=== PATIENT | male | born 1970 | race Caucasian/White ===

== ENCOUNTER 2017-10-30 19:11 | Emergency (ER) | payer OTHER ==
[~2017-10-30] VITALS: Ht 154.9 cm; Wt 48.5 kg
--- NOTE | 2017-10-30 19:48 | CT SCAN REPORT ---
EXAMINATION: CT HEAD WITHOUT CONTRAST CLINICAL INFORMATION: 47-year-old man with facial droop. COMPARISON: None TECHNIQUE: Contiguous axial imaging was performed from the skull base to vertex without intravenous administration of contrast. DLP: 594 mGy-cm FINDINGS: There is no evidence of acute intracranial hemorrhage or territorial infarction. No abnormal mass effect or midline shift is seen. Kothari to white matter differentiation is well preserved. No extra-axial fluid collections are identified. The ventricles are normal in size. There is no abnormal attenuation within the brain parenchyma. The osseous structures and soft tissues are normal. The mastoid air cells and visualized portions of the paranasal sinuses are well aerated. IMPRESSION: No acute intracranial pathology.
[2017-10-30 19:50] LABS: ABSOLUTE BASOPHIL COUNT 0 /CUMM (0.0-0.2); ABSOLUTE EOSINOPHIL COUNT 0.1 /CUMM (0.0-0.7); ABSOLUTE GRANULOCYTE CT 4.5 /CUMM (1.4-6.5); ABSOLUTE LYMPH COUNT 2.1 /CUMM (1.2-3.4); ABSOLUTE MONOCYTE COUNT 0.5 /CUMM (0.10-0.60); BASOPHIL % 0.3 % (0.0-2.0); EOSINOPHIL % 1.8 % (0-5); GRANULOCYTE % 61.7 % (42.2-75.2); HEMATOCRIT 47.7 % (42-52); MEAN CORPUSCULAR HGB CONC 33.9 G/DL (33.0-37.0); MEAN CORPUSCULAR VOLUME 88.3 FL (80.0-94.0); MEAN PLATELET VOLUME 6.7 FL (7.4-10.4); PLATELET COUNT 307 /CUMM (130-400); RBC DISTRIBUTION WIDTH 13.6 % (11.5-14.5); WHITE BLOOD CELL COUNT 7.3 /CUMM (4.8-10.8)
[2017-10-30 19:58] LABS: PT 10.2 SEC (9.4-12.5); PTT 34 SEC (25-37)
--- NOTE | 2017-10-30 20:09 | ED NEURO DEFICIT/STROKE ---
History of Present Illness General Chief Complaint: General Adult Stated Complaint: FACIAL DROOP LOW BLOOD SUGAR Source: patient, old records, friend Exam Limitations: no limitations Vital Signs & Intake/Output Vital Signs & Intake/Output Vital Signs Date Time Temp Pulse Resp B/P B/P Pulse O2 O2 Flow FiO2 Mean Ox Delivery Rate 10/30 1938 107 18 148/97 98 Room Air 10/30 1922 98.9 114 18 145/97 96 Room Air Allergies Coded Allergies: No Known Allergies (07/02/17) Reconcile Medications Doxycycline Hyclate (Vibramycin) 100 MG CAPSULE 1 CAP PO BID [place] palsy Glycerin/Propylene Glycol (Lubricant Eye Drops) 0.3 %-1 % DROPS 1 CUATE OS Q1 NEEDED PRN bells palsy Prednisone 20 MG TABLET 1 TAB PO BID bells palsy Triage Note: PT FROM HOME C/O POSSIBLE STROKE? PT FROM WORK BROUGHT IN BY COWORKERS ONCE SHIFT ENDED. COWORKERS STATE THAT TODAY AROUND 1130 THAT PT ARRIVED INTO WORK WITH ABNORMAL SPEECH, AND LEFT SIDED FACIAL DROOP AND SWELLING PER [employer]. PT IS ABLE TO FOLLOW COMMANDS, NO DRIFT IN ANY EXTREMETIES. PT IS A DIABETIC, BSG 308. PTS COWORKERS STATES THAT PTS SUGARS HAVE BEEN "OFF THE CHARTS" OVER THE PAST 2 MONTHS. PTS BP ELEVATED 145/97 HR 114. NO DISTRESS NOTED. PT IS A&0X3. Triage Nurses Notes Reviewed? yes Onset: Morning Duration: hour(s):, constant, continues in ED Timing: recent history Severity: moderate New Weakness: left facial Altered Sensations: left facial Vision Problem? No Glaucoma? No Baseline: alert, oriented x 3 HPI: 11:30 the patient's coworker noted left facial droop and left eye tearing. The symptoms persisted and after work he came to the emergency department. There's been no fever chills nausea vomiting diarrhea abdominal pain chest pain shortness breath headache dysuria rash bleeding change in bowel bladder habit. Past History Travel History Traveled to [place] past 21 day No Medical History Any Pertinent Medical History? see below for history Endocrine: diabetes Surgical History Surgical History: non-contributory Psychosocial History What is your primary language Swedish Tobacco Use: Never used Family History Hx Contributory? No Review of Systems Review of Systems Constitutional: Reports: no symptoms. EENTM: Reports: see HPI, eye tearing. Respiratory: Reports: no symptoms. Cardiovascular: Reports: no symptoms. GI: Reports: no symptoms. Genitourinary: Reports: no symptoms. Musculoskeletal: Reports: no symptoms. Skin: Reports: no symptoms. Neurological/Psychological: Reports: see HPI, weakness (left facial). Hematologic/Endocrine: Reports: no symptoms. Immunologic/Allergic: Reports: no symptoms. All Other Systems: Reviewed and Negative Physical Exam Physical Exam General Appearance: well developed/nourished, alert, awake, comfortable Head: atraumatic Eyes: Left: other. Bilateral: PERRL, EOMI. Ears, Nose, Throat: normal ENT inspection, moist mucous membrane, hearing grossly normal Neck: normal inspection, supple, full range of motion, trachea midline Respiratory: normal breath sounds, chest non-tender, no respiratory distress, quiet respiration, lungs clear Cardiovascular: regular rate/rhythm, normal peripheral pulses, norml femoral pulses equa Peripheral Pulses: 4+ carotid (R), 4+ carotid (L) Gastrointestinal: normal bowel sounds, soft, non-tender, no organomegaly Back: normal inspection, normal range of motion Extremities: normal range of motion, no ligament instability Psychiatric: awake, alert, oriented x 3 Cranial Nerves: normal speech, PERRL, facial asymmetry, facial droop, facial weakness Coordination/Gait: normal finger to nose, normal gait Motor/Sensory: motor deficit, sensory deficit Reflexes: 2+: bicep (R), bicep (L). Skin: intact, normal color Core Measures CVA/TIA Diagnosis: No Sepsis Present: No Sepsis Focused Exam Completed? No Progress Differential Diagnosis: David's Palsy, intracranial Hem., intracranial mass/tumor , stroke Plan of Care: Orders Procedure Date/time Status Add-on Test (ER Only) 10/30 1944 Active EKG 10/30 1944 Active MAGNESIUM 10/30 1941 Complete LYME TITRE 10/30 1941 Active TROPONIN LEVEL 10/30 1924 Complete PARTIAL THROMBOPLASTIN TIME 10/30 1924 Complete PROTHROMBIN TIME 10/30 1924 Complete COMPREHENSIVE METABOLIC PANEL 10/30 1924 Complete CBC WITHOUT DIFFERENTIAL 10/30 1924 Complete Laboratory Tests 10/30/171941: Anion Gap 16, Estimated GFR > 60, BUN/Creatinine Ratio 27.8 H, Glucose 299 H, Calcium 10.1, Magnesium 1.7, Total Bilirubin 1.1, AST 33, ALT 37, Alkaline Phosphatase 74, Troponin I < 0.01, Total Protein 7.8, Albumin 5.2 H, Globulin 2.6, Albumin/Globulin Ratio 2.0, PT 10.2, INR 0.94, APTT 34, CBC w Diff NO MAN DIFF REQ, RBC 5.40, MCV 88.3, MCH 30.0, MCHC 33.9, RDW 13.6, MPV 6.7 L, Gran % 61.7, Lymphocytes % 29.2, Monocytes % 7.0, Eosinophils % 1.8, Basophils % 0.3, Absolute Granulocytes 4.5, Absolute Lymphocytes 2.1, Absolute Monocytes 0.5, Absolute Eosinophils 0.1, Absolute Basophils 0, Lyme Disease Antibody Pending Diagnostic Imaging: Viewed by Me: CT Scan. Discussed w/RAD: CT Scan. Radiology Impression: no acute abnormality Initial ED EKG: normal axis, normal intervals, normal p-waves, normal QRS complex, normal sinus rhythm, no ST T wave changes Rhythm Strip: normal sinus rhythm Departure Departure Time of Disposition: 2113 Disposition: HOME OR SELF CARE Condition: Stable Clinical Impression Primary Impression: David's palsy Referrals: Tiara HERNANDES,Emanuel De La Torre Call for neurology follow up Antoni HERNANDES,Rob Meda (PCP/Family) Departure Forms: Customer Survey General Discharge Information Prescriptions: Current Visit Scripts Doxycycline Hyclate (Vibramycin) 1 CAP PO BID #20 CAP Prednisone 1 TAB PO BID #10 TAB Glycerin/Propylene Glycol (Lubricant Eye Drops) 1 CUATE OS Q1 NEEDED PRN bells palsy #1 BOT Ref 10
[2017-10-30] MEDS ORDERED: PREDNISONE20 M1 PO ×2 (21:19→21:39)
[2017-10-30] MEDS ORDERED: LUBRICANT EYE D15 M1 OS ×2 (21:19→21:39)
[2017-10-30] MEDS ORDERED: VIBRAMYCIN100 MG PO ×2 (21:19→21:39)
[2017-10-30 21:44] VITALS: BP 127/84
== END 2017-10-30 21:47 ==
LOC: ERH 19:11
PROVIDERS: Physician Assistant Medical
DX: G51.0 Bell's palsy (principal)
CPT/HCPCS: 86618; 93005; 93010; 96372